=== PATIENT | male | born 1940 | race Caucasian/White ===

== ENCOUNTER → 2017-02-11 | Outpatient (CLI) | payer MEDICARE, BC ==
--- NOTE | 2017-02-11 11:33 | KCIC ---
MR of the left hindfoot HISTORY: Peroneal tendon tear. Pain for one year. No known injury. Pain mostly laterally and at the arch. TECHNIQUE: Routine multiplanar sequences are obtained. FINDINGS: There is medial and plantar flexion of the talus. Loss of the normal longitudinal arch of the foot. Compression and distortion of the tarsal sinus. Degenerative changes are identified about the midfoot and tarsal joints. Bone marrow irregularity at the subchondral aspect of the distal inferior and medial talus likely degenerative, with some bone hypertrophy at the medial talonavicular joint. No evidence of acute fracture or aggressive bone destruction. No significant joint effusion. No evidence of acute plantar fasciitis. Mild hypointense thickening of the plantar aponeurosis compatible with scarring. Mild posterior tibial tendinosis with mild thickening and signal and mild surrounding fluid. No evidence of rupture or high-grade tear. No evidence of peroneal tendon rupture. Achilles tendon is intact. Limited visualization of the lateral ankle ligaments. There does appear to be scarring of the anterior talofibular ligament and calcaneofibular ligament compatible with prior injury. Mild soft tissue edema around the visualized hindfoot. IMPRESSION: 1. Loss of the longitudinal arch of the foot with plantar and medial flexion of the talus. Compression of the tarsal sinus with abnormal signal, compatible with chronic synovitis and as can be seen with symptoms of tarsal sinus syndrome. 2. Posterior tibial tendinosis or tenosynovitis. 3. Primary osteoarthritis, appears greatest at the talonavicular joint. Electronically signed by: Ethan Wu MD (02/11/2017 11:29 AM)
== END | disposition home or self-care (01) ==
LOC: KCIC MRI 10:16
PROVIDERS: ATTEND Podiatrist Foot & Ankle Surgery
DX: S96.912A Strain of unspecified muscle and tendon at ankle and foot level, left foot, initial encounter (principal); M19.072 Primary osteoarthritis, left ankle and foot; M65.9 Synovitis and tenosynovitis, unspecified; R60.9 Edema, unspecified; X58.XXXA Exposure to other specified factors, initial encounter; Y93.89 Activity, other specified; Y92.89 Other specified places as the place of occurrence of the external cause; Y99.8 Other external cause status
CPT/HCPCS: 73718